=== PATIENT | female | born 1995 | race Caucasian/White ===

== ENCOUNTER 2021-11-03 20:43 | Outpatient (CLI) | payer MEDICAID ==
[2021-11-03 21:56] LABS: HCT - HEMATOCRIT 40.7 % (37.0-47.0); HGB - HEMOGLOBIN 13.7 g/dL (12.0-16.0); MEAN CORPUSCULAR HEMOGLOBIN 30.2 pg (27.0-31.0); MEAN CORPUSCULAR HGB CONC 33.7 g/dL (32.0-36.0); MEAN CORPUSCULAR VOLUME 89.6 fL (81.0-99.0); MEAN PLATELET VOLUME 10.2 fL (7.9-10.8); RED BLOOD COUNT 4.54 10^6/uL (4.20-5.40); RED CELL DISTRIBUTION WIDTH 12.3 % (12.0-15.0); WHITE BLOOD COUNT 6.8 x10^3/uL (4.8-10.8)
[2021-11-03 22:17] LABS: ALBUMIN 4.1 g/dL (3.2-5.5); ALBUMIN/GLOBULIN RATIO 1.1 (1.0-2.2); BILIRUBIN,TOTAL 0.8 mg/dL (0.2-1.0); CALCIUM 9.2 mg/dL (8.5-10.3); CREATININE 0.8 mg/dL (0.4-1.0); POTASSIUM 3.6 mmol/L (3.5-5.0); TOTAL PROTEIN 7.8 g/dL (6.7-8.2)
[2021-11-03 22:34] LABS: THYROID STIMULATING HORMONE 1.84 uIU/mL (0.34-5.60)
--- NOTE | 2021-11-04 08:48 | Ultrasound Report ---
PROCEDURE: Pelvic w/Transvaginal INDICATIONS: PELVIC PAIN TECHNIQUE: Real-time scanning was performed of the pelvic organs, with image documentation. Additional endovagi nal scanning was necessary due to incomplete visualization of the adnexal and endometrial structures by transabdominal scanning. COMPARISON: None. FINDINGS: Limited scanning through the kidneys shows no hydronephrosis. No pathologic free abdominal or pelvic fluid. Uterus: Uterus is normal in size at 12.1 x 4.7 x 6.1 cm. The endometrium measures 4.3 mm in combine d thickness. The uterus is anteverted. Ovaries: The right ovary measures 5.1 x 2.7 x 2.8 cm. The left ovary measures 3.7 x 2.4 x 2.8 cm. Th ere is no fluid in the adnexa. A right ovarian cyst measures 2.8 x 1.7 x 1.9 cm. Additionally greater than 12 follicles are seen in both ovaries. Other: No free pelvic fluid. IMPRESSION: 1. No acute ultrasound abnormality of the pelvis. 2. Right ovarian simple cyst measuring 2.8 x 1.7 x 1.9 cm. 3. Greater than 12 follicles in each ovary, please correlate with other clinical information for poss ible polycystic ovarian syndrome. Reviewed by: Kolby Foley on 11/04/2021 8:47 AM PDT Approved by: Kolby Folye on 11/04/2021 8:47 AM PDT Station ID: [id number]
== END 2021-11-03 20:44 | disposition home or self-care (01) ==
LOC: DI 20:43
PROVIDERS: ATTEND Obstetrics & Gynecology
DX: N83.291 Other ovarian cyst, right side (principal); E04.9 Nontoxic goiter, unspecified; Z84.1 Family history of disorders of kidney and ureter; Z78.0 Asymptomatic menopausal state; Z13.29 Encounter for screening for other suspected endocrine disorder
CPT/HCPCS: 36415; 80053; 83690; 84443; 85027

== ENCOUNTER 2022-06-11 14:23 | Emergency (ER) | payer MEDICAID ==
[2022-06-11 14:45] VITALS: BP 123/75
[2022-06-11 15:25] LABS: RAPID STREP SCREEN Negative (Negative)
[2022-06-11 16:54] LABS: CORONAVIRUS 229E-RESP PCR NOT DETECTED; CORONAVIRUS HKU1-RESP PCR NOT DETECTED; CORONAVIRUS NL63-RESP PCR NOT DETECTED
[2022-06-11 16:55] LABS: B. PARAPERTUSSIS- RESP PCR PAN NOT DETECTED; B. PERTUSSIS- RESP PCR PANEL NOT DETECTED; C. PNEUMONIAE- RESP PCR PANEL NOT DETECTED; CORONAVIRUS OC43-RESP PCR NOT DETECTED; HUMAN METAPNEUMOVIRUS NOT DETECTED; INFLUENZA A- RESP PCR PANEL NOT DETECTED; INFLUENZA B - RESP PCR PANEL NOT DETECTED; M. PNEUMONIAE- RESP PCR PANEL NOT DETECTED; PARAINFLUENZA VIRUS 1 NOT DETECTED; PARAINFLUENZA VIRUS 2 NOT DETECTED; PARAINFLUENZA VIRUS 3 NOT DETECTED; PARAINFLUENZA VIRUS 4 NOT DETECTED; RHINOVIRUS/ENTEROVIRUS NOT DETECTED; RSV- RESP PCR PANEL NOT DETECTED; SARS-CoV-2 -RESP PCR PANEL NOT DETECTED
--- NOTE | 2022-06-11 19:01 | ED Physician Documentation ---
History of Present Illness - Stated complaint Stated Complaint: SORE THROAT,EAR PX - Chief complaint Chief Complaint: Heent - Additonal information Additional information: 26-year-old female presents emergency department for evaluation of 3 days cough as well as sore throat. She also comes with her young children who have had about 2 weeks of cough cold and congestion. Patient's had no fevers. No nausea or vomiting. She does have a hoarse voice. No recent travel. Denies any pertinent past medical history or medications. Review of Systems Constitutional: denies: Fever, Myalgias Eyes: reports: Reviewed and negative Ears: reports: Reviewed and negative Nose: reports: Congestion Throat: reports: Sore throat Respiratory: reports: Cough GI: reports: Reviewed and negative : reports: Reviewed and negative PD PAST MEDICAL HISTORY - Past Surgical History Past Surgical History: No - Present Medications Home Medications: Ambulatory Orders Medication Instructions Recorded Confirmed HYDROcod/ACETAM 5/325 [Vicodin 1 - 2 ea PO Q6H PRN #15 tablet 12/04/12 5/325] Ondansetron [Zofran] 4 mg PO Q6H #10 tablet 12/04/12 Penicillin Vk 500 mg PO TID 7 Days tablet 12/04/12 predniSONE [Deltasone] 20 mg PO DAILY 5 Days tablet 12/04/12 No Known Home Medications 08/11/20 08/11/20 - Allergies Allergies/Adverse Reactions: Allergies Allergy/AdvReac Type Severity Reaction Status Date / Time No Known Drug Allergies Allergy Verified 06/11/22 14:45 - Social History Does the pt smoke?: No Smoking Status: Never smoker Does the pt drink ETOH?: No Does the pt have substance abuse?: No - Immunizations Immunizations are current?: Yes - POLST Patient has POLST: No PD ED PE NORMAL - General General: Alert and oriented X 3, No acute distress - HEENT HEENT: PERRL - Neck Neck: Supple, no meningeal sign, No adenopathy - Cardiac Cardiac: RRR, No murmur - Respiratory Respiratory: No respiratory distress, Clear bilaterally - Abdomen Abdomen: Normal bowel sounds, Soft, Non tender - Back Back: No CVA TTP, No spinal TTP - Derm Derm: Normal color, Warm and dry, No rash - Extremities Extremities: No deformity - Neuro Neuro: Alert and oriented X 3 Eye Opening: Spontaneous Motor: Obeys Commands Verbal: Oriented GCS Score: 15 Results - Vitals Vitals: Vital Signs - 24 hr 06/11/22 14:43 Temperature 36.6 C Heart Rate 96 Respiratory 16 Rate Blood Pressure 123/75 O2 Saturation 98 Oxygen O2 Source Room air - Labs Labs: Laboratory Tests 06/11/22 06/11/22 15:03 15:03 Nasal Adenovirus (PCR) NOT DETECTED Nasal B. parapertussis DNA (PCR) NOT DETECTED Nasal Coronavir 229E PCR NOT DETECTED Nasal Coronavir HKU1 PCR NOT DETECTED Nasal Coronavir NL63 PCR NOT DETECTED Nasal Coronavir OC43 PCR NOT DETECTED Nasal Enterovir/Rhinovir PCR NOT DETECTED Nasal Influenza B PCR NOT DETECTED Nasal Influenza A PCR NOT DETECTED Nasal Parainfluen 1 PCR NOT DETECTED Nasal Parainfluen 2 PCR NOT DETECTED Nasal Parainfluen 3 PCR NOT DETECTED Nasal Parainfluen 4 PCR NOT DETECTED Nasal RSV (PCR) NOT DETECTED Nasal B.pertussis DNA PCR NOT DETECTED Nasal C.pneumoniae (PCR) NOT DETECTED [place] Human Metapneumo PCR NOT DETECTED Nasal M.pneumoniae (PCR) NOT DETECTED Nasal SARS-CoV-2 (PCR) NOT DETECTED Group A Strep Rapid Negative PD Medical Decision Making - ED course Complexity details: reviewed results, considered differential, d/w patient ED course: Well-appearing 26-year-old female who presents emergency department for evaluation of 3 days cough as well as sore throat and hoarse voice. Respiratory PCR panel was negative. Patient has unremarkable vitals here without hypoxia. Cardiopulmonary auscultation was unremarkable. I have low suspicion for strep pharyngitis as she has an unremarkable posterior oropharynx without exudate. No tender anterior cervical lymphadenopathy. In addition she has had a cough. I suspect she has a viral pharyngitis. We discussed routine care measures as well as emergent return precautions. Departure - Departure Disposition: 01 Home, Self Care Clinical Impression: Viral pharyngitis Condition: Stable Record reviewed to determine appropriate education?: Yes Instructions: ED Pharyngitis Viral Comments: You have had a cough and sore throat for about 3 days. Your viral testing here in the ER was negative. However about 95% of all sore throats are caused by a virus. In general this will get better over the next few days. I recommend warm salt water gargles and alternating Tylenol and ibuprofen for any discomfort. If you find that your symptoms are not getting better after about a week, you develop any high fevers have difficulty breathing, talking or handling your oral secretions you should return immediately to the ER for a second evaluation
== END 2022-06-11 19:08 | disposition home or self-care (01) ==
LOC: ED 14:23
DX: J02.8 Acute pharyngitis due to other specified organisms (principal); Z20.822 Contact with and (suspected) exposure to COVID-19
CPT/HCPCS: 87070; 87430; 87633; 99282; 99283